=== PATIENT | male | born 1925 | race Caucasian/White ===

== ENCOUNTER → 2016-08-08 | Outpatient (REF) ==
[~2016-08-08] MED LIST: ASPIRIN 32325 MG/TAB PO; ASPIRIN 81M81 MG/TA2 PO; BENADRYL25 M2; CALCIPOTRIENE0.005% TP; DETROL LA4 PO; FLEET ENEM1 BOT/133 RC; FLOMAX 0.40.4 MG/CAP PO; IMDUR 30MG30 MG/TAB PO; IPRATROPIUM BROM3 M1 IH; LANOXIN 0.120.125 MG PO; MILK OF MAGNESI30 ML PO; MUCINEX 60600 MG/TA1 PO; NIZORAL SHAMPO120 M1 TP; OMEGA 31000 MG PO; PRILOSEC 20MG20 MG PO; REGLAN 10MG10 MG/TAB PO; SYNTHROID0.112 MG/T PO; SYNTHROID0.125 MG/T PO; TESSALON P100 MG/CAP PO; TYLENOL 650MG650 M2 PO; VESICARE10 MG PO; VISTARIL 2525 MG/CAP PO; XANAX 0.5MG0.5 MG PO; ZOFRAN8 MG PO
== END ==
LOC: ZLAB.WCH 08:43
DX: Z01.89 Encounter for other specified special examinations (principal)

== ENCOUNTER → 2016-09-25 | Outpatient (REF) | LOC: ZLAB.WCH 10:23 | DX: Z01.89 Encounter for other specified special examinations (principal) ==

== ENCOUNTER → 2016-09-29 | Outpatient (REF) | LOC: ZLAB.WCH 08:39 | DX: Z01.89 Encounter for other specified special examinations (principal) ==

== ENCOUNTER → 2016-10-06 | Outpatient (REF) | LOC: ZLAB.WCH 18:17 | DX: Z01.89 Encounter for other specified special examinations (principal) ==